=== PATIENT | male | born 1950 | race Caucasian/White ===

== ENCOUNTER 2022-03-25 06:00 | Day surgery (SDC) | payer MEDICARE, BC ==
[~2022-03-25 06:00] MED LIST: Dextrose 5%-0.45% NaCl 1,000 ML IV SCH
[2022-03-25] MEDS ORDERED: fentaNYL 100 MCG/2 ML SDV IV ONE ×3 (06:01→07:50)
[2022-03-25] MEDS ORDERED: Midazolam 1 MG/ML 2 ML SDV IV ONE ×4 (06:01→07:58)
[2022-03-25] MEDS ORDERED: fentaNYL 100 MCG/2 ML SDV ONE (06:14)
[2022-03-25] MEDS ORDERED: Midazolam 1 MG/ML 2 ML SDV ONE (06:14)
[2022-03-25] MEDS ORDERED: Sodium Chloride 0.9% 10 ML Syringe FLUSH PRN (07:34)
[2022-03-25] MEDS ORDERED: Sodium Chloride 0.9% 10 ML Syringe FLUSH SCH (09:00)
== END 2022-03-25 10:10 | disposition home or self-care (01) ==
LOC: DL.ENDO 06:00
PROVIDERS: ATTEND Internal Medicine Gastroenterology
DX: Z12.11 Encounter for screening for malignant neoplasm of colon (principal); K64.4 Residual hemorrhoidal skin tags; K57.30 Diverticulosis of large intestine without perforation or abscess without bleeding; K64.8 Other hemorrhoids; K22.2 Esophageal obstruction; I10 Essential (primary) hypertension; E78.5 Hyperlipidemia, unspecified; K21.9 Gastro-esophageal reflux disease without esophagitis; E66.09 Other obesity due to excess calories; L98.8 Other specified disorders of the skin and subcutaneous tissue; M10.9 Gout, unspecified; N40.0 Benign prostatic hyperplasia without lower urinary tract symptoms; Z87.19 Personal history of other diseases of the digestive system; Z87.39 Personal history of other diseases of the musculoskeletal system and connective tissue; Z98.890 Other specified postprocedural states; Z68.32 Body mass index [BMI] 32.0-32.9, adult
CPT/HCPCS: J2250; J3010; J7042